=== PATIENT | male | born 1945 | race Caucasian/White ===

== ENCOUNTER 2018-12-22 12:32 | Emergency (ER) | payer MEDICARE, BC | END 2018-12-22 13:54 | disposition home or self-care (01) | LOC: ERS 12:32 | DX: H00.011 Hordeolum externum right upper eyelid (principal); K21.9 Gastro-esophageal reflux disease without esophagitis; I10 Essential (primary) hypertension; G43.909 Migraine, unspecified, not intractable, without status migrainosus; G47.30 Sleep apnea, unspecified; Z79.82 Long term (current) use of aspirin; Z79.899 Other long term (current) drug therapy | CPT/HCPCS: 99283 ==